=== PATIENT | male | born 1965 | race African-American/Black ===

== ENCOUNTER 2017-01-14 05:25 | Inpatient (IN) | payer BC, OTHER ==
[~2017-01-14] VITALS: Ht 193 cm; Wt 112.5 kg
[2017-01-14] VITALS (49 sets, daily range): BP systolic 131–157; BP diastolic 73–102
[2017-01-14] MEDS ORDERED: LACTATED RINGERS 1,000 ML IV SCH (06:20)
[2017-01-14] MEDS ORDERED: LIDOCAINE HCL 1%/EPI 1:200,000 30 ML VIAL ONE (06:23)
[2017-01-14] MEDS ORDERED: GELATIN SPONGE,ABSORBABLE SZ 100 ONE (06:23)
[2017-01-14] MEDS ORDERED: THROMBIN (BOVINE) 5000 UNITS/VIAL TOP ONE (06:23)
[2017-01-14] MEDS ORDERED: NORMAL SALINE 0.9% 10 ML SYR ONE (06:23)
[2017-01-14] MEDS ORDERED: BACITRACIN 50,000 UNITS/VIAL ONE (06:24)
[2017-01-14] MEDS ORDERED: HYDROMORPHONE HCL/PF 2MG/ML (OR) ONE (06:58)
[2017-01-14] MEDS ORDERED: MIDAZOLAM HCL 2 MG/2 ML VIAL ONE (06:58)
[2017-01-14] MEDS ORDERED: FENTANYL CITRATE/PF 50MCG/ML 5ML VIAL ONE ×2 (06:59→07:00)
[2017-01-14] MEDS ORDERED: PHENYLEPHRINE HCL 10 MG/ML 1ML (IV VIAL) IV ONE ×2 (07:02→08:36)
[2017-01-14] MEDS ORDERED: ROCURONIUM BROMIDE 10MG/ML VIAL 5ML IV ONE ×2 (07:02→09:05)
[2017-01-14] MEDS ORDERED: PROPOFOL 200MG/20ML VIAL IV ONE ×2 (07:02→09:02)
[2017-01-14] MEDS ORDERED: FENTANYL CITRATE/PF 50MCG/ML 2ML VIAL ONE (07:08)
[2017-01-14] MEDS ORDERED: AMLO5TAB88 PO (07:12)
[2017-01-14] MEDS ORDERED: NITROGLYCERIN 50MG PREMIX 0 ML IV ONE (07:26)
[2017-01-14] MEDS ORDERED: GLYCOPYRROLATE 0.2 MG/ML 2ML VIAL ONE (08:35)
[2017-01-14] MEDS ORDERED: CEFAZOLIN SODIUM 1000MG/VIAL ONE (08:36)
[2017-01-14] MEDS ORDERED: DIPHENHYDRAMINE 50MG/ML VIAL IV PRN (10:30)
[2017-01-14] MEDS ORDERED: IPRATROPIUM/ALBUTEROL 0.5-3(2.5)MG/3ML NEB INH PRN (10:30)
[2017-01-14] MEDS ORDERED: ONDANSETRON HCL 4MG/2ML VIAL IV PRN (10:30)
[2017-01-14] MEDS ORDERED: ACETAMINOPHEN 325MG TABLET PO PRN (10:30)
[2017-01-14] MEDS: MORPHINE SULFATE 2 MG/ML CPJ (NOT FOR IM USE) IV PRN ×2 (11:29→22:15)
[2017-01-14] MEDS: DEXT 5%/LACTATED RINGERS 1,000 ML IV SCH (11:42)
[2017-01-14] MEDS ORDERED: ONDANSETRON INJ IV PRN (12:15)
[2017-01-14] MEDS ORDERED: NALOXONE INJ IV PRN (12:15)
[2017-01-14] MEDS ORDERED: DIPHENHYDRAMINE INJ IV PRN (12:15)
[2017-01-14] MEDS: HYDROMORPHONE PCA 10MG/50ML IV PRN (12:29)
[2017-01-14] MEDS: DEXAMETHASONE 4MG/ML 1ML VIAL IV SCH ×2 (13:52→17:46)
[2017-01-14] MEDS: CEFAZOLIN 1000MG PREMIX 50 ML IV SCH ×2 (13:52→22:07)
[2017-01-14] MEDS ORDERED: CEFAZOLIN SODIUM 1000MG/VIAL IV SCH (14:00)
[2017-01-15] VITALS (62 sets, daily range): BP systolic 127–178; BP diastolic 68–122
[2017-01-15] MEDS: DEXAMETHASONE 4MG/ML 1ML VIAL IV SCH ×3 (00:46→11:52)
[2017-01-15] MEDS: DEXT 5%/LACTATED RINGERS 1,000 ML IV SCH (00:46)
[2017-01-15] MEDS: CEFAZOLIN 1000MG PREMIX 50 ML IV SCH (05:44)
[2017-01-15] MEDS: NICARDIPINE 50 MG in SODIUM CHLORIDE 0.9% 230 ML IV PRN ×2 (06:58→20:21)
[2017-01-15] MEDS: HYDROMORPHONE PCA 10MG/50ML IV PRN (08:45)
[2017-01-15] MEDS: CLONIDINE 0.1MG TABLET PO PRN (16:43)
[2017-01-15] MEDS: HYDROCODONE/ACETAMINOPHEN 10/325MG TABLET PO PRN ×2 (17:53→20:57)
[2017-01-15] MEDS: AMLODIPINE 5MG TABLET PO SCH (20:56)
[2017-01-15] MEDS: MORPHINE SULFATE 2 MG/ML CPJ (NOT FOR IM USE) IV PRN (23:53)
[2017-01-16] VITALS (15 sets, daily range): BP systolic 121–157; BP diastolic 78–103
[2017-01-16] MEDS: HYDROCODONE/ACETAMINOPHEN 10/325MG TABLET PO PRN ×5 (04:15→20:59)
[2017-01-16] MEDS: AMLODIPINE 5MG TABLET PO SCH ×2 (08:10→20:57)
[2017-01-16 10:19] LABS: BASOPHILS % 0.2 % (0.0-2.0); HEMATOCRIT. 40.9 % (42.0-52.0); HEMOGLOBIN. 13.6 g/dL (14.0-18.0); LYMPHOCYTES % 9.1 % (20.0-50.0); MEAN CORPUSCULAR HEMOGLOBIN 29.3 pg (28.0-32.0); MEAN CORPUSCULAR VOLUME 87.8 fL (80.0-94.0); MEAN PLATELET VOLUME 8.5 fl (7.4-10.4); MONOCYTES % 5.2 % (2.0-8.0); NEUTROPHILS % 85.5 % (40.0-76.0); PLATELET 153 x1000/uL (130-400); RED BLOOD CELL COUNT 4.65 mill/uL (4.7-6.1); RED CELL DISTRIBUTION WIDTH 15.1 % (11.6-14.6)
[2017-01-16 10:28] LABS: CARBON DIOXIDE 29 mEq/L (21-32); CHLORIDE 102 mEq/L (98-107)
[2017-01-16] MEDS: TRAMADOL 50MG TABLET PO PRN (14:56)
[2017-01-17] VITALS: BP 147/94
[2017-01-17] MEDS: HYDROCODONE/ACETAMINOPHEN 10/325MG TABLET PO PRN ×5 (01:01→20:36)
[2017-01-17 04:00] VITALS: BP 159/99
[2017-01-17] MEDS: CLONIDINE 0.1MG TABLET PO PRN (05:19)
[2017-01-17 08:00] VITALS: BP 137/95
[2017-01-17] MEDS: AMLODIPINE 5MG TABLET PO SCH ×2 (08:24→20:16)
[2017-01-17] MEDS: TRAMADOL 50MG TABLET PO PRN (08:25)
[2017-01-17 12:00] VITALS: BP 123/85
[2017-01-17 16:00] VITALS: BP 144/96
[2017-01-17] MEDS: POTASSIUM CHLORIDE 10MEQ TABLET SR PO NR (16:25)
[2017-01-17] MEDS: LEVOFLOXACIN 500MG PREMIX 100 ML IV SCH (16:31)
[2017-01-17 20:00] VITALS: BP 155/99
[2017-01-18] VITALS: BP 144/97
[2017-01-18] MEDS: HYDROCODONE/ACETAMINOPHEN 10/325MG TABLET PO PRN ×4 (00:39→15:58)
[2017-01-18 04:00] VITALS: BP 154/93
[2017-01-18 06:09] LABS: BASOPHILS % 0.3 % (0.0-2.0); EOSINOPHILS % 1.3 % (0.0-5.0); HEMATOCRIT. 42.3 % (42.0-52.0); HEMOGLOBIN. 14.2 g/dL (14.0-18.0); MEAN CORPUSCULAR HEMOGLOBIN 29.7 pg (28.0-32.0); MEAN CORPUSCULAR VOLUME 88.1 fL (80.0-94.0); MEAN PLATELET VOLUME 7.8 fl (7.4-10.4); MONOCYTES % 7.3 % (2.0-8.0); NEUTROPHILS % 71.1 % (40.0-76.0); PLATELET 148 x1000/uL (130-400); RED CELL DISTRIBUTION WIDTH 14.3 % (11.6-14.6)
[2017-01-18 06:41] LABS: CARBON DIOXIDE 30 mEq/L (21-32); CHLORIDE 98 mEq/L (98-107)
[2017-01-18 08:00] VITALS: BP 157/97
[2017-01-18] MEDS: AMLODIPINE 5MG TABLET PO SCH (08:18)
[2017-01-18 16:00] VITALS: BP 151/106
[2017-01-18] MEDS: POTASSIUM CHLORIDE 10MEQ TABLET SR PO NR (16:04)
[2017-01-18] MEDS: LEVOFLOXACIN 500MG PREMIX 100 ML IV SCH (16:43)
[2017-01-18 17:28] VITALS: BP 151/106
[2017-01-18] MEDS: CLONIDINE 0.1MG TABLET PO PRN (17:28)
== END 2017-01-18 18:05 | disposition home or self-care (01) | DRG 472 ==
LOC: OR 05:25 → MICUNO 05:26 → 6EST 01-16 03:35
PROVIDERS: ADMIT Internal Medicine Geriatric Medicine; ATTEND Internal Medicine
PROC: 0RG10K1 Fusion of Cervical Vertebral Joint with Nonautologous Tissue Substitute, Posterior Approach, Posterior Column, Open Approach (ICD-10-PCS; 2017-01-14)
PROC: 00NW0ZZ Release Cervical Spinal Cord, Open Approach (ICD-10-PCS; principal; 2017-01-14 07:00)
DX: M47.12 Other spondylosis with myelopathy, cervical region (principal); G95.9 Disease of spinal cord, unspecified; I10 Essential (primary) hypertension; M48.02 Spinal stenosis, cervical region
CPT/HCPCS: 36415; 72040; 72141; 80048; 80053; 85025; 85730; 86850; 86900; 88304; 88311; 97110; 97112; 97116; 97163; 97535; A4216; C1713; J0690; J1100; J1170; J1956; J2250; J2270; J2370; J2704; J3010; J3490; J7050; J7120; J7121; L0172